=== PATIENT | male | born 1965 | race African-American/Black ===

== ENCOUNTER → 2017-01-11 | Outpatient (CLI) | payer MEDICAID, OTHER ==
[2016-06-22 11:21] VITALS: BP 144/82
[~2017-01-11] MED LIST: ASPI81TA44 PO; ATOR10TA PO; ATOR40TA59 PO; LISI10TA2 PO; MAGN400T3 PO; METO25TA4 PO; Nitroglycerin TD; OXYC-250 PO; SACU1TAB7 PO
--- NOTE | 2017-01-11 12:09 | RAD ---
Complete abdominal ultrasound History: Abnormal liver enzymes, history of colon cancer in 2016. Comparison: CT abdomen pelvis 04/11/2016. Procedure: Transabdominal ultrasound images are obtained. Findings: Visualized pancreas is unremarkable. Liver is diffusely increased in echogenicity. No focal hepatic masses are identified. Right hepatic lobe measures 15.8 cm in length. Gallbladder has an unremarkable appearance. Common bile duct measures normally at 5 mm in diameter. Spleen is unremarkable. Splenic length is 9.9 cm. Right kidney is normal in size and configuration without hydronephrosis. Right kidney demonstrates parapelvic cyst measuring 2.6 cm. Left kidney is normal in size and configuration without hydronephrosis. Visualized portions of the aorta and IVC have normal caliber. Impression: 1. Echogenic liver. Most common etiology is fatty liver disease. 2. No evidence of gallbladder pathology. 3. Right renal cyst.
--- NOTE | 2017-01-11 13:05 | CARD ---
APPROVED REPORT EXAM: Two-dimensional and M-mode echocardiogram with Doppler and color Doppler. Other Information Quality : Good INDICATION Cardiac Disease: CAD Abnormal LFT's 2D DIMENSIONS RVDd2.8 (2.9-3.5cm)Left Atrium(2D)3.3 (1.6-4.0cm) IVSd1.6 (0.7-1.1cm)Aortic Root(2D)3.7 (2.0-3.7cm) LVDd5.5 (3.9-5.9cm)PWd1.5 (0.7-1.1cm) LVDs3.9 (2.5-4.0cm)FS (%) 28.0 % SV77.7 mlLVEF(%)53.7 (>50%) Aortic Valve AoV Peak Ashish.91.5cm/sAoV VTI14.6cm AO Peak GR.3.4mmHgAO Mean GR.2mmHg MARYCHUY (VTI)5.27cm2 Mitral Valve MV E Gdtoopek88.3cm/sMV DECEL [id number] MV A Sajrtrgu20.9cm/sE/A Ratio0.6 Tricuspid Valve TR P. Caapboxo123hx/sRAP [id number] TR Peak Gr.34qoCdDSPF46isQp LEFT VENTRICLE The left ventricle is normal size. There is moderate concentric left ventricular hypertrophy. Left ve ntricle systolic function is moderately decreased. The Ejection Fraction is 35-40% There is hypokines is in the mid to distal anterior wall, apex and septum. Transmitral Doppler flow pattern is Grade I-a bnormal relaxation pattern. RIGHT VENTRICLE The right ventricle is normal size. The right ventricular systolic function is normal. ATRIA The left atrium size is normal. The right atrium size is normal. The interatrial septum is intact wit h no evidence for an atrial septal defect or patent foramen ovale as noted on 2-D or Doppler imaging. AORTIC VALVE The aortic valve is normal in structure and function. Doppler and Color Flow revealed no significant aortic regurgitation. There is no significant aortic valvular stenosis. MITRAL VALVE The mitral valve is normal in structure and function. There is no evidence of mitral valve prolapse. There is no mitral valve stenosis. Doppler and Color-flow revealed trace mitral regurgitation. TRICUSPID VALVE The tricuspid valve is normal in structure and function. Doppler and Color Flow revealed physiologica l tricuspid regurgitation. The PA pressure was estimated at 32 mmHg. There is no tricuspid valve sten osis. PULMONIC VALVE Doppler and Color Flow revealed trace pulmonic valvular regurgitation. There is no pulmonic valvular stenosis. GREAT VESSELS The aortic root is normal in size. The ascending aorta is mildly dilated at 3.7 cm. The IVC is normal in size and collapses >50% with inspiration. PERICARDIAL EFFUSION There is no evidence of significant pericardial effusion. Critical Notification Critical Value: No <Conclusion> There is hypokinesis in the mid to distal anterior wall, apex and septum. The ascending aorta is mildly dilated at 3.7 cm. Left ventricle systolic function is moderately decreased. The Ejection Fraction is 35-40%
== END | disposition home or self-care (01) ==
LOC: ECHO 09:55
PROVIDERS: ATTEND Internal Medicine Cardiovascular Disease
DX: I25.10 Atherosclerotic heart disease of native coronary artery without angina pectoris (principal); R79.89 Other specified abnormal findings of blood chemistry; I31.3 Pericardial effusion (noninflammatory); N28.1 Cyst of kidney, acquired; K76.0 Fatty (change of) liver, not elsewhere classified; Z85.038 Personal history of other malignant neoplasm of large intestine
CPT/HCPCS: 76700; 93306

== ENCOUNTER 2017-02-02 18:28 | Emergency (ER) | payer OTHER ==
[~2017-02-02] VITALS: Ht 180.3 cm; Wt 96.6 kg
[2017-02-02] MEDS ORDERED: 0.9 % SODIUM CHLORIDE 10 ML DISP.SYRIN. IV PRN (19:00)
--- NOTE | 2017-02-02 19:08 | EKG ---
[address] [address] Test Date: 2017-02-02 Test Time: 19:06:47 Pat Name: GODFREY FULLER Department: Room: Gender: M Purchasing Officer: : 1965 Requested By: WESLEY MELENDEZ Order Number: [id number] Reading MD: Nehemiah Purvis Measurements Intervals [place] Rate: 74 P: 28 SD: 212 QRS: -10 QRSD: 96 T: 88 QT: 388 QTc: 436 Interpretive Statements SINUS RHYTHM LEFTWARD AXIS QRS(T) CONTOUR ABNORMALITY CONSISTENT WITH ANTERIOR INFARCT Electronically Signed On 02-07-2017 9:35:51 CDT by Nehemiah Purvis
[2017-02-02 19:10] LABS: BASO # 0.1 x10^3/uL (0.0-0.2); BASO % 1 % (0-3); EOS # 0.3 x10^3/uL (0.0-0.7); EOS % 5 % (0-3); HEMATOCRIT 41.7 % (39.0-53.0); LYMPH # 2.2 x10^3/uL (1.0-4.8); LYMPH % 36 % (24-48); MEAN CORPUSCULAR HEMOGLOBIN 36 pg (25-35); MEAN CORPUSCULAR HGB CONC 34 g/dL (31-37); MEAN CORPUSCULAR VOLUME 107 fL (79-100); MONO # 0.4 x10^3/uL (0.0-1.1); MONO % 7 % (0-9); NEUT # 3.1 x10^3uL (1.8-7.7); NEUT % 51 % (31-73); PLATELET COUNT 154 x10^3/uL (140-400); RED CELL DISTRIBUTION WIDTH 12.5 % (11.5-14.5); WHITE BLOOD COUNT 6.1 x10^3/uL (4.0-11.0)
[2017-02-02] MEDS ORDERED: IV NORMAL SALINE 1,000ML 1,000 ML IV SCH (19:15)
[2017-02-02] MEDS ORDERED: IOHEXOL 300 MG/ML 75 ML VIAL. IV ONE (19:30)
[2017-02-02] MEDS ORDERED: HYDROMORPHONE PF 1 MG/ML DISP.SYRIN. IM ONE ×2 (19:30→20:15)
[2017-02-02] MEDS ORDERED: ONDANSETRON PF 4 MG/2 ML VIAL. IV ONE (19:30)
[2017-02-02 19:32] LABS: ALBUMIN 3.4 g/dL (3.4-5.0); CALCIUM 8.9 mg/dL (8.5-10.1); GFR 95.7; POTASSIUM 4.6 mmol/L (3.5-5.1); TOTAL BILIRUBIN 0.8 mg/dL (0.2-1.0); TOTAL PROTEIN 6.9 g/dL (6.4-8.2)
--- NOTE | 2017-02-02 19:58 | ED.ADGEN ---
Past History Past Medical History: CAD, Cancer, High Cholesterol, Hypertension, [place] Past Surgical History: Cancer Surgery Smoking: Cigarettes, Less than 1pk/day, Quit Less Than 1 Year Alcohol Use: None Drug Use: None General Abdominal Assessment Chief Complaint Abdominal pain with nausea History of Present Illness Patient is a [age] year old [sex] who presents with [] Pt denies trauma,surgery,estrogen use,history of DVT or PE, and immobilization[] Review of Systems Constitutional: Denies fever or chills [] Eyes: Denies change in visual acuity, redness, or eye pain [] HENT: Denies nasal congestion or sore throat [] Respiratory: Denies cough or shortness of breath [] Cardiovascular: No additional information not addressed in HPI [] GI: Denies abdominal pain, nausea, vomiting, bloody stools or diarrhea [] : Denies dysuria or hematuria [] Musculoskeletal: Denies back pain or joint pain [] Integument: Denies rash or skin lesions [] Neurologic: Denies headache, focal weakness or sensory changes [] Endocrine: Denies polyuria or polydipsia [] Current Medication Current Medications Medications (Trade) Dose Ordered Sig/[place] Start Time Stop Time Status Last Admin Dose Admin Hydromorphone HCl (Dilaudid) 1 mg 1X ONCE 02/02/17 20:15 02/02/17 20:16 DC 02/02/17 20:30 1 MG Iohexol (Omnipaque 300 Mg/ml) 75 ml 1X ONCE 02/02/17 19:30 02/02/17 19:31 DC 02/02/17 19:35 75 ML Ondansetron HCl (Zofran) 4 mg 1X ONCE 02/02/17 19:30 02/02/17 19:31 DC 02/02/17 19:22 4 MG Sodium Chloride (Iv Sodium Chloride 0.9% 1,000ml) 1,000 ml @ 1,000 mls/hr Q1H 02/02/17 19:15 02/02/17 20:15 DC 02/02/17 19:15 1,000 MLS/HR Sodium Chloride (Normal Saline Flush) 10 ml QSHIFT PRN 02/02/17 19:00 02/02/17 19:23 10 ML Allergies Allergies Coded Allergies Type Severity Reaction Last Updated Verified No Known Drug Allergies 2/25/16 No Physical Exam Constitutional: Well developed, well nourished, no acute distress, non-toxic appearance. [] HENT: Normocephalic, atraumatic, bilateral external ears normal, oropharynx moist, no oral exudates, nose normal. [] Eyes: PERRLA, EOMI, conjunctiva normal, no discharge. [] Neck: Normal range of motion, no tenderness, supple, no stridor. [] Cardiovascular:Heart rate regular rhythm, no murmur [] Lungs & Thorax: Bilateral breath sounds clear to auscultation [] Abdomen: Bowel sounds normal, soft, no tenderness, no masses, no pulsatile masses. [] Skin: Warm, dry, no erythema, no rash. [] Back: No tenderness, no CVA tenderness. [] Extremities: No tenderness, no cyanosis, no clubbing, ROM intact, no edema. [] Neurologic: Alert and oriented X 3, normal motor function, normal sensory function, no focal deficits noted. [] Psychologic: Affect normal, judgement normal, mood normal. [] Negative Abdominal Assessment The patient denies abdominal or flank pain, anorexia, nausea or vomiting, dysphagia, change in bowel habits or black or bloody stools or weight loss. EKG Results EKG timed at approximately 1900 hrs. demonstrates a heart rate of 74 normal sinus rhythm left axis deviation history of prior [place] with Q waves noted in V1 and V2 V3 which is consistent with old injury pattern. There is no new ST segment elevation or changes. 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 [] PULSE OXIMETRY The patient maintained their pulse oximetry readings above 90 percent during their evaluation per my interpretation.[] Radiology/Procedures Laboratory Tests Test 02/02/17 18:50 White Blood Count 6.1x10^3/uL Red Blood Count 3.90x10^6/uL Hemoglobin 14.0g/dL Hematocrit 41.7% Mean Corpuscular Volume 107fL Mean Corpuscular Hemoglobin 36pg Mean Corpuscular Hemoglobin Concent 34g/dL Red Cell Distribution Width 12.5% Platelet Count 154x10^3/uL Neutrophils (%) (Auto) 51% Lymphocytes (%) (Auto) 36% Monocytes (%) (Auto) 7% Eosinophils (%) (Auto) 5% Basophils (%) (Auto) 1% Neutrophils # (Auto) 3.1x10^3uL Lymphocytes # (Auto) 2.2x10^3/uL Monocytes # (Auto) 0.4x10^3/uL Eosinophils # (Auto) 0.3x10^3/uL Basophils # (Auto) 0.1x10^3/uL Sodium Level 140mmol/L Potassium Level 4.6mmol/L Chloride Level 104mmol/L Carbon Dioxide Level 28mmol/L Anion Gap 8 Blood Urea Nitrogen 14mg/dL Creatinine 1.0mg/dL Estimated GFR (Cockcroft-Gault) 95.7 BUN/Creatinine Ratio 14 Glucose Level 94mg/dL Calcium Level 8.9mg/dL Total Bilirubin 0.8mg/dL Aspartate Amino Transf (AST/SGOT) 32U/L Alanine Aminotransferase (ALT/SGPT) 45U/L Alkaline Phosphatase 59U/L Creatine Kinase 80U/L Creatine Kinase MB (Mass) 0.7ng/mL Creatine Kinase MB Relative Index 0.9% Troponin I Quantitative < 0.017ng/mL Total Protein 6.9g/dL Albumin 3.4g/dL Albumin/Globulin Ratio 1.0 Lipase 118U/L Current Medications Medications (Trade) Dose Ordered Sig/[place] Route PRN Reason Start Time Stop Time Status Last Admin Dose Admin Sodium Chloride (Iv Sodium Chloride 0.9% 1,000ml) 1,000 ml @ 1,000 mls/hr Q1H IV 02/02/17 19:15 02/02/17 20:15 DC 02/02/17 19:15 1,000 MLS/HR Sodium Chloride (Normal Saline Flush) 10 ml QSHIFT PRN IV AFTER MEDS AND BLOOD DRAWS 02/02/17 19:00 02/02/17 19:23 10 ML Hydromorphone HCl (Dilaudid) 1 mg 1X ONCE IM 02/02/17 19:30 02/02/17 19:31 DC 02/02/17 19:22 1 MG Ondansetron HCl (Zofran) 4 mg 1X ONCE IV 02/02/17 19:30 02/02/17 19:31 DC 02/02/17 19:22 4 MG Iohexol (Omnipaque 300 Mg/ml) 75 ml 1X ONCE IV 02/02/17 19:30 02/02/17 19:31 DC 02/02/17 19:35 75 ML Hydromorphone HCl (Dilaudid) 1 mg 1X ONCE IM 02/02/17 20:15 02/02/17 20:16 DC [] PATIENT: GODFREY FULLER ACCOUNT: [id number] : 1965 LOCATION: ER AGE: 51 SEX: M EXAM STATUS: PRE ER ORD. PHYSICIAN: WESLEY MELENDEZ MD REASON: ab pain with prior surgery PROCEDURE: CT ABD PELV W/ IV CONTRST ONLY Examination: CT of the abdomen pelvis with IV contrast HISTORY History of abdominal pain, right colectomy, hernia repair. COMPARISON 04/11/2016. TECHNIQUE Axial CT images of the abdomen is a performed with IV contrast. Coronal sagittal reformats were performed. Exposure: One or more of the following dose reduction technique were utilized for this examination: 1. Automated exposure control. 2.Adjustment of MA and /or KV according to patient size. 3. Use of iterative reconstruction technique. Findings : Minimal bibasilar lung atelectasis. No evidence of free air identified in the abdomen. The visualized liver, spleen, adrenal grossly appears unremarkable. The gallbladder is mildly distended. The stomach is mildly distended. Visualized pancreas grossly appears unremarkable. The bilateral kidneys enhance symmetrically. Cystic structure identified in the right kidney likely a cyst similar to prior exam. Surgical changes identified in the right colon. Urinary bladder is mildly distended. The caliber of the aorta grossly appears unremarkable. Mild aortic atherosclerosis. No evidence of lytic bony destructive lesion. Moderate degenerative changes lumbar spine. IMPRESSION 1. No acute intra-abdominal findings. 2. Prior surgical changes identified in the right colon region. Electronically signed by: Mason Avery (Feb 02, 2017 19:57:08) DICTATED AND SIGNED BY: MASON AVERY MD DATE: 02/02/171956 CC: WESLEY MELENDEZ MD; ANN WAKEFIELD MD ~ Current Data Laboratory Tests Test 02/02/17 18:50 White Blood Count 6.1x10^3/uL (4.0-11.0) Red Blood Count 3.90x10^6/uL (4.30-5.70) L Hemoglobin 14.0g/dL (13.0-17.5) Hematocrit 41.7% (39.0-53.0) Mean Corpuscular Volume 107fL (79-100) H Mean Corpuscular Hemoglobin 36pg (25-35) H Mean Corpuscular Hemoglobin Concent 34g/dL (31-37) Red Cell Distribution Width 12.5% (11.5-14.5) Platelet Count 154x10^3/uL (140-400) Neutrophils (%) (Auto) 51% (31-73) Lymphocytes (%) (Auto) 36% (24-48) Monocytes (%) (Auto) 7% (0-9) Eosinophils (%) (Auto) 5% (0-3) H Basophils (%) (Auto) 1% (0-3) Neutrophils # (Auto) 3.1x10^3uL (1.8-7.7) Lymphocytes # (Auto) 2.2x10^3/uL (1.0-4.8) Monocytes # (Auto) 0.4x10^3/uL (0.0-1.1) Eosinophils # (Auto) 0.3x10^3/uL (0.0-0.7) Basophils # (Auto) 0.1x10^3/uL (0.0-0.2) Sodium Level 140mmol/L (136-145) Potassium Level 4.6mmol/L (3.5-5.1) Chloride Level 104mmol/L (98-107) Carbon Dioxide Level 28mmol/L (21-32) Anion Gap 8 (6-14) Blood Urea Nitrogen 14mg/dL (8-26) Creatinine 1.0mg/dL (0.7-1.3) Estimated GFR (Cockcroft-Gault) 95.7 BUN/Creatinine Ratio 14 (6-20) Glucose Level 94mg/dL (70-99) Calcium Level 8.9mg/dL (8.5-10.1) Total Bilirubin 0.8mg/dL (0.2-1.0) Aspartate Amino Transf (AST/SGOT) 32U/L (15-37) Alanine Aminotransferase (ALT/SGPT) 45U/L (16-63) Alkaline Phosphatase 59U/L (46-116) Creatine Kinase 80U/L (39-308) Creatine Kinase MB (Mass) 0.7ng/mL (0.0-3.6) Creatine Kinase MB Relative Index 0.9% (0-4) Troponin I Quantitative < 0.017ng/mL (0-0.055) Total Protein 6.9g/dL (6.4-8.2) Albumin 3.4g/dL (3.4-5.0) Albumin/Globulin Ratio 1.0 (1.0-1.7) Lipase 118U/L (73-393) Active Scripts Medications Dose Route/Sig Days Date Category Dose Instructions Magnesium Oxide 400 Mg Tablet 1 Tab PO DAILY 06/22/16 Rx Metoprolol Tartrate 25 Mg Tablet 1 Tab PO BID 06/22/16 Rx LAST DOSE GIVEN: DATE: TIME: NEXT DOSE DUE: DATE: RESTART TODAY TIME: EVENING Percocet 10-325 Mg Tablet (Oxycodone Hcl/Acetaminophen) 1 Each Tablet 1 Each PO PRN BID PRN 06/21/16 Reported [Nitroglycerin] 1 PATCH Patch 1 Patch TD DAILY 05/24/16 Rx Children's Aspirin (Aspirin) 81 Mg Tab.chew 81 Mg PO DAILYWBKFT 05/24/16 Rx Lisinopril 10 Mg Tablet 1 Tab PO DAILY16 05/23/16 Reported Entresto 49 mg-51 mg Tablet (Sacubitril/Valsartan) 1 Each Tablet 1 Each PO DAILY 05/23/16 Reported Atorvastatin Calcium 40 Mg Tablet 1 Tab PO QHS 04/09/16 Reported Vital Signs Date Time Temp Pulse Resp B/P Pulse Ox O2 Delivery O2 Flow Rate FiO2 02/02/17 18:28 98.6 77 20 96 Room Air Vital Signs Date Time Temp Pulse Resp B/P Pulse Ox O2 Delivery O2 Flow Rate FiO2 02/02/17 20:30 20 98 Room Air 02/02/17 19:22 20 96 Room Air 02/02/17 18:28 98.6 77 20 96 Room Air Vital Signs Date Time Temp Pulse Resp B/P Pulse Ox O2 Delivery O2 Flow Rate FiO2 02/02/17 20:30 20 98 Room Air 02/02/17 18:28 98.6 77 Assessment approximately 7:[address] of abdominal pain although he is hungry wanting something to drink at this point waiting for CT scan to be complete to rule out small bowel obstruction. In my differential diagnosis of concern ischemic bowel, small bowel obstruction, diverticulitis, appendicitis, bowel adhesions causing ileus bowel perforation or other intra-abdominal catastrophe. Patient was ordered a second dose of pain medications and some more fluids. Course & Med Decision Making Pertinent Labs and Imaging studies reviewed. (See chart for details) [Patient at 750 was still complaining of abdominal pain and nausea that was hungry and wanted somebody. At this point time his abdomen still soft but he does still have elevated bowel sounds without distention. Patient was offered another dose of Dilaudid to treat his pain. Reassessment at 8:[address] scan is completed results demonstrated no acute abdomen no small bowel obstruction no evidence of pneumocystis intestinalis patient also has improved nausea and is able to tolerate by mouth medications as well as fluids.. This point I have offered admission for pain control. Patient would prefer to go home as long as his pain is under better control.] Patient at 913 was reevaluated pain is now almost resolved patient feels greatly prefer to go home as opposed to be admitted to the hospital. Again abdomen soft no evidence of surgical abdomen on CT scan patient given precautions given pain control and nausea medications follow-up with his primary care doctor Dr. Wakefield tomorrow morning. Patient's understands precautions and return for any worsening symptoms or questions or concerns. Critical Care Time Critical care time was [] minutes exclusive of procedures. Final Impression Undifferentiated abdominal pain nausea and vomiting [] Problems: WESLEY MELENDEZ MD Feb 02, 2017 19:58
--- NOTE | 2017-02-02 20:39 | ACF ---
Admission Criteria Forms ABDOMINAL PAIN Clinical Indications for Admission to Inpatient Care (Place 'X' for any and all applicable criteria): Admission is indicated for ANY ONE of the following(1)(2)(3)(4)(5): [ ]I. Inpatient admission required rather than observation care (Also use Abdominal Pain: Observation Care, as appropriate) because of ANY ONE of the following: [ ]a) Severe pain requiring acute inpatient management [ ]b) Identification of etiology/finding that requires inpatient care (eg, aortic dissection, free air) [ ]c) Absent bowel sounds with complete ileus(6) [ ]d) Suspected toxic megacolon [ ]e) Severe electrolyte abnormalities requiring inpatient care [ ]f) High fever or infection requiring inpatient admission as indicated by ANY ONE of following(7)(8): [ ] i) Appropriate outpatient or observational care antimicrobial treatment unavailable, not effective, or not feasible [ ] ii) Documented bacteremia [ ] iii) Temperature > 104.9 degrees F (oral) [ ] iv) T >103.1 F (oral) or < 96.8 F(rectal) that does not respond to all emergency treatment measures [ ]g) Signs of intestinal obstruction [B] [ ]h) Hemodynamic instability [ ]i) IV fluid to replace significant ongoing losses (greater than 3 L/m2 per day) (12)(13) [ ]j) Percutaneous or open drainage (eg, abscess, biliary tract ) procedures [ ]k) Parenteral nutrition regimen that must be implemented on inpatient basis [ ]l) Other condition,treatment or monitoring requiring inpatient admission. [ ]II. Peritoneal signs present [ ]III. Surgery needed that cannot be performed on an ambulatory basis. [ ]IV. Evaluation requires patient to not eat or drink for extended period ( eg, more than 24 hours). [ ]V. Contraindications and/or Inappropriate clinical situations for Observational Care in patients with abdominal pain, when ANY ONE of the following is required: [ ]a) Thorough evaluation is required to prevent catastrophic events due to delays in diagnosing (e.g.Mesenteric ischemia) 1,3 [ ]b) Patient with severe pathology or with chronic symptoms unlikely to improve in the ED stay (3) [ ]. General contraindications and/or Inappropriate clinical situations for Observational Care in patients with abdominal pain, when ANY ONE of the following is required: [ ]a) Prediction of prolongation of LOS based on ANY ONE of the following may be considered as a contraindication for observational care 2, 3, 4, 5, 6, 7, 8, 9, 10, 11 [ ]i) Age > 65 yrs. [ ]ii) Patient arriving by ambulance [ ]iii) Patient with high acuity [ ]iv) Patient requiring vital sign monitoring [ ]v) Patient on IV medication [ ]b) Systolic blood pressures 180mmHg 3,12 [ ]c) Patient with altered mental status including delirium and other alteration of consciousness, (3) [ ]d) Patient whose discharge disposition will be to a custodial home or rehabilitation home should not be managed in Emergency Department Observation Unit. CMS rule requires 3 days hospital stay before such placement.3,13 [ ]e) Patient with failure to thrive due to broad array of etiologies 3,16,17 [ ]f) Inability to ambulate 3,14 Extended stay beyond goal length of stay may be needed for(2)(3): [ ]a) Persistent abdominal pain with suspected intra-abdominal process [ ]b) Diagnosed condition requiring continued stay (e.g., pancreatitis, complicated diverticulitis) [ ]c) Surgery (e.g., colectomy) The original [facility] content created by [employer] has been revised. The portions of the content which have been revised are identified through the use of italic text or in bold, and [facility] has neither reviewed nor approved the modified material.All other unmodified content is copyright [employer]. Please see references footnoted in the original [facility] edition 2016 DANIELLE BENTLEY Feb 02, 2017 20:39
[2017-02-02 21:20] VITALS: BP 162/93
== END 2017-02-02 21:40 | disposition home or self-care (01) ==
LOC: ER 18:28
DX: R10.9 Unspecified abdominal pain (principal); R11.2 Nausea with vomiting, unspecified; E78.00 Pure hypercholesterolemia, unspecified; I10 Essential (primary) hypertension; I25.2 Old myocardial infarction; I25.10 Atherosclerotic heart disease of native coronary artery without angina pectoris; F17.210 Nicotine dependence, cigarettes, uncomplicated
CPT/HCPCS: 36415; 74177; 80053; 82553; 83690; 84484; 85027; 93005; 96361; 96372; 96374; 99285; J1170; J2405; Q9967; J7030

== ENCOUNTER 2017-06-26 17:40 | Observation (INO) | payer OTHER ==
[~2017-06-26] VITALS: Ht 177.8 cm; Wt 96.7 kg
[~2017-06-26 17:40] MED LIST changes: -OXYC-250 PO; +OXYC-328 PO
[2017-06-26 18:15] LABS: BASO # 0.1 x10^3/uL (0.0-0.2); BASO % 1 % (0-3); EOS # 0.1 x10^3/uL (0.0-0.7); EOS % 2 % (0-3); HEMATOCRIT 40.8 % (39.0-53.0); HEMOGLOBIN 14.3 g/dL (13.0-17.5); LYMPH # 1.5 x10^3/uL (1.0-4.8); LYMPH % 24 % (24-48); MEAN CORPUSCULAR HEMOGLOBIN 37 pg (25-35); MEAN CORPUSCULAR HGB CONC 35 g/dL (31-37); MEAN CORPUSCULAR VOLUME 106 fL (79-100); MONO # 0.4 x10^3/uL (0.0-1.1); MONO % 7 % (0-9); NEUT % 66 % (31-73); PLATELET COUNT 179 x10^3/uL (140-400); RED BLOOD COUNT 3.86 x10^6/uL (4.30-5.70); RED CELL DISTRIBUTION WIDTH 12.8 % (11.5-14.5)
[2017-06-26] MEDS ORDERED: IV NORMAL SALINE 1,000ML 1,000 ML IV SCH (18:16)
--- NOTE | 2017-06-26 18:21 | PHYS DOC ---
Past History Past Medical History: CAD, Cancer, High Cholesterol, Hypertension, MD Past Surgical History: Cancer Surgery Smoking: Cigarettes, Less than 1pk/day, Quit Less Than 1 Year Alcohol Use: None Drug Use: None Adult General Chief Complaint Chief Complaint: CHEST PAIN [facility] HPI Patient is a pleasant 52-year-old male with a known history of coronary artery disease was a prior smoker, has a history of hypertension and hyperlipidemia who presents with chest pain that began about an hour and half prior to arrival. Patient was at rest when he noted left-sided chest pain with radiation to the left arm and hand grading a tingling feeling in his hand. Patient says the pain is been continuous last hour and a half with no radiation to the back neck or jaw. It has made him lightheaded and dizzy with some nausea but no vomiting, diarrhea or diaphoresis. Patient denies any abdominal pain, denies any URI symptoms, trauma or other recent travel outside the country. Pain is presently an 8 of 10 not worse with exertion or position. He says this is very reminiscent of his prior heart issues. He's had catheterizations 3 with multiple stents. His doctor is Dr. Mckinnon. Differential diagnosis for chest pain: Pericarditis, myocarditis, endocarditis, pneumothorax, pneumonia, aortic dissection, esophageal spasm, esophagitis, peptic ulcer disease, acute coronary syndrome, mediastinitis, Boerhaave syndrome , musculoskeletal chest wall pain, costochondritis, intercostal strain, rib fracture, pulmonary contusion, pneumonitis, pleural effusion, pericardial effusion, pericardial tamponode, and pleurisy. Considered upon arrival Review of Systems Review of Systems Constitutional: Denies fever or chills [] Eyes: Denies change in visual acuity, redness, or eye pain [] HENT: Denies nasal congestion or sore throat [] Respiratory: Denies cough or shortness of breath [] Cardiovascular: No additional information not addressed in HPI [] GI: Denies abdominal pain, denies any vomiting diarrhea or constipation but has been fairly nauseous : Denies dysuria or hematuria [] Musculoskeletal: Denies back pain or joint pain [] Integument: Denies rash or skin lesions [] Neurologic: He did get lightheaded and dizzy Endocrine: Denies polyuria or polydipsia [] Allergies Allergies Allergies Coded Allergies Type Severity Reaction Last Updated Verified No Known Drug Allergies 12/04/15 No Physical Exam Physical Exam Constitutional: Well developed, well nourished, no acute distress, non-toxic appearance. he is nondiaphoretic HENT: Normocephalic, atraumatic, bilateral external ears normal, oropharynx moist, no oral exudates, nose normal. [] Eyes: PERRLA, EOMI, conjunctiva normal, no discharge. [] Neck: Normal range of motion, no tenderness, supple, no stridor. [] Cardiovascular:Heart rate regular rhythm, no murmur [] Lungs & Thorax: Bilateral breath sounds clear to auscultation [] Abdomen: Bowel sounds normal, soft, no tenderness, no masses, no pulsatile masses. [] Skin: Warm, dry, no erythema, no rash. [] Back: No tenderness, no CVA tenderness. [] Extremities: No tenderness, no cyanosis, no clubbing, ROM intact, no edema. [] Neurologic: Alert and oriented X 3, normal motor function, normal sensory function, no focal deficits noted. [] Psychologic: Affect normal, judgement normal, mood normal. [] Current Patient Data Lab Results Laboratory Tests Test 06/26/17 17:50 White Blood Count 6.0 x10^3/uL (4.0-11.0) Red Blood Count 3.86 x10^6/uL (4.30-5.70) L Hemoglobin 14.3 g/dL (13.0-17.5) Hematocrit 40.8 % (39.0-53.0) Mean Corpuscular Volume 106 fL (79-100) H Mean Corpuscular Hemoglobin 37 pg (25-35) H Mean Corpuscular Hemoglobin Concent 35 g/dL (31-37) Red Cell Distribution Width 12.8 % (11.5-14.5) Platelet Count 179 x10^3/uL (140-400) Neutrophils (%) (Auto) 66 % (31-73) Lymphocytes (%) (Auto) 24 % (24-48) Monocytes (%) (Auto) 7 % (0-9) Eosinophils (%) (Auto) 2 % (0-3) Basophils (%) (Auto) 1 % (0-3) Neutrophils # (Auto) 4.0 x10^3uL (1.8-7.7) Lymphocytes # (Auto) 1.5 x10^3/uL (1.0-4.8) Monocytes # (Auto) 0.4 x10^3/uL (0.0-1.1) Eosinophils # (Auto) 0.1 x10^3/uL (0.0-0.7) Basophils # (Auto) 0.1 x10^3/uL (0.0-0.2) Prothrombin Time 10.3 SEC (9.4-11.4) Prothrombin Time INR 1.0 (0.9-1.1) PTT 27 SEC (23-33) Sodium Level 139 mmol/L (136-145) Potassium Level 4.2 mmol/L (3.5-5.1) Chloride Level 103 mmol/L (98-107) Carbon Dioxide Level 30 mmol/L (21-32) Anion Gap 6 (6-14) Blood Urea Nitrogen 12 mg/dL (8-26) Creatinine 1.2 mg/dL (0.7-1.3) Estimated GFR (Cockcroft-Gault) 77.2 BUN/Creatinine Ratio 10 (6-20) Glucose Level 95 mg/dL (70-99) Calcium Level 9.0 mg/dL (8.5-10.1) Magnesium Level 1.5 mg/dL (1.8-2.4) L Total Bilirubin 0.8 mg/dL (0.2-1.0) Aspartate Amino Transferase (AST) 36 U/L (15-37) Alanine Aminotransferase (ALT) 56 U/L (16-63) Alkaline Phosphatase 77 U/L (46-116) Creatine Kinase 142 U/L (39-308) Creatine Kinase MB (Mass) 0.6 ng/mL (0.0-3.6) Creatine Kinase MB Relative Index 0.4 % (0-4) Troponin I Quantitative 0.028 ng/mL (0-0.055) AU-Eep-H-Type Natriuretic Peptide 417 pg/mL (0-124) H Total Protein 7.2 g/dL (6.4-8.2) Albumin 3.8 g/dL (3.4-5.0) Albumin/Globulin Ratio 1.1 (1.0-1.7) Lipase 109 U/L (73-393) EKG EKG []EKG timed 5:47 PM 06/26/2017 read by me demonstrates sinus rhythm with a heart rate of 96 left atrial enlargement noted in V2 with a large P wave. Patient has a Q-wave noted in V1 and V2 V3 likely secondary to an old anterior septal infarct. There is some nonspecific T-wave ST segment depression in the lateral leads. We'll compare to old EKG. When compared with EKG from 02/02/2017 there is no changes noted. Radiology/Procedures Radiology/Procedures []B chest x-ray read by me time on the x-ray was 6:07 PM 06/26/2017 demonstrates mild cardiomegaly no calcific tortuous aorta, no pneumothorax, no pneumonia, no pleural effusion. No subdiaphragmatic air Course & Med Decision Making Course & Med Decision Making Pertinent Labs and Imaging studies reviewed. (See chart for details) patient presented with chest pain by chest pain differential was considered upon arrival complete and EKG, troponin, chest x-ray and appropriate lab work. Time is now 7 PM patient feels markedly better Patient tells me that their symptoms given during CC are improved. We reviewed labs and radiology reports with patient and any family at bedside. I have looked at the AP chest x-ray which demonstrates mild cardiomegaly without pulmonary infiltrate, no soda Medicare no pleural effusion, no evidence of tortuous aorta or calcific or aorta. No long bone fractures. At this time patient is still waiting for the rest of his laboratory returned. Is now 7:30 patient noted to be coming seeming and a dose of 2 g of IV mag as been ordered. This patient presents with chest pain with a history of hypertension, hyperlipidemia and a prior heart disease. His heart score was measured on arrival History: This time his history and risk factors he is a moderate risk which requires hospitalization. I have spoken with this patient extensively about the plan. He is pain-free at this time resting quietly. It is also noted Highly suspicious 2 points moderately suspicious 1. slightly suspicious 0 point EKG: ST segment depression 2. nonspecific repolarization disturbance 1. normal 0 point Age: Greater than 65 2 points, 65-45 1., less than 45 years old 0 points Risk factors:> 3 risk factors 2 points, 1-2 risk factors one point, no risk factors 0 point Troponin: > 2 times normal 2 points, 1-2 times normal 1., normal limits 0 point Total score: Score % pts MACE/n MACE Policy 0-3 32% 1.9% 0.05% Discharge 4-6 51% 413/3136 13% 1.3% Observation Risk management 7-10 17% 518/1045 50% 2.8% Observation Treatment, CAG [] Powerhouse Attendant note: Dr. Henderson Powerhouse Attendant called at of the service 7:30 Consult called back at 7:30 Discussed the case I presented and they agreed with admission. Time of acceptance 7:30 Impression it is scary locally in [place] and [facility] and is agreeable to admission to the hospital. He will have repeat serial enzymes drawn and transfer to a nearby [facility] facility if necessary. Patient be given more pain medications as he also receives the magnesium. Dragon Disclaimer Dragon Disclaimer This chart was dictated in whole or in part using Voice Recognition software in a busy, high-work load, and often noisy Emergency Department environment. It may contain unintended and wholly unrecognized errors or omissions. Departure Departure: Impression: Primary Impression: Chest pain Disposition: ADMITTED INPATIENT Condition: GUARDED Referrals: ANN PÉREZ MD (PCP) WESLEY MELENDEZ MD Jun 26, 2017 18:21
[2017-06-26] MEDS: HYDROmorphone PF 1 MG/ML DISP.SYRIN IV/SQ PRN ×3 (18:28→19:56)
[2017-06-26] MEDS ORDERED: ASPIRIN 81 MG TAB.CHEW PO ONE (18:30)
[2017-06-26] MEDS ORDERED: 0.9 % SODIUM CHLORIDE 10 ML DISP.SYRIN. IV PRN (18:30)
[2017-06-26] MEDS ORDERED: LORazepam 2 MG/ML VIAL IV ONE (18:30)
[2017-06-26 18:35] LABS: ALBUMIN 3.8 g/dL (3.4-5.0); ALBUMIN/GLOBULIN RATIO 1.1 (1.0-1.7); CREATININE 1.2 mg/dL (0.7-1.3); GFR 77.2; POTASSIUM 4.2 mmol/L (3.5-5.1); TOTAL BILIRUBIN 0.8 mg/dL (0.2-1.0); TOTAL PROTEIN 7.2 g/dL (6.4-8.2)
[2017-06-26 19:00] LABS: MAGNESIUM 1.5 mg/dL (1.8-2.4)
[2017-06-26] MEDS ORDERED: MAGNESIUM SULFATE 2GM 50 ML IV ONE (19:15)
[2017-06-26] MEDS: IV NORMAL SALINE 1,000ML 1,000 ML IV SCH ×2 (19:35→21:39)
--- NOTE | 2017-06-26 19:40 | EKG ---
[address] [address] Test Date: 2017-06-26 Test Time: 17:47:56 Pat Name: GODFREY FULLER Department: Room: Gender: M Internist: JASSI : 1965 Requested By: JANEY GANDHI Order Number: [id number] Reading MD: Nehemiah Purvis Measurements Intervals [place] Rate: 96 P: 52 TX: 188 QRS: -9 QRSD: 92 T: 85 QT: 336 QTc: 431 Interpretive Statements SINUS RHYTHM GIANFRANCO-SEPTAL INFARCT Electronically Signed On 06-27-2017 13:21:44 CDT by Nehemiah Purvis
[2017-06-26] MEDS ORDERED: ACETAMINOPHEN 325 MG TABLET PO PRN (19:45)
[2017-06-26] MEDS ORDERED: ONDANSETRON PF 4 MG/2 ML VIAL. IV PRN (19:45)
[2017-06-26] MEDS: NITROGLYCERIN SUBLINGUAL 0.4 MG BOTTLE OF 25. SL PRN ×6 (19:57→23:21)
[2017-06-26] MEDS ORDERED: HYDROmorphone PF 2 MG/ML VIAL IV ONE (20:00)
[2017-06-26 21:17] VITALS: BP_SYST 123; BP_SYST 154; BP_DIAS 80; BP_DIAS 96
[2017-06-26] MEDS: METOPROLOL TART IMMED RELEASE 25 MG TABLET PO SCH (21:38)
[2017-06-26] MEDS: MORPHINE SULFATE 4 MG/ML DISP.SYRIN. IV PRN ×2 (21:38→23:45)
[2017-06-26] MEDS ORDERED: ATORVASTATIN CALCIUM 20 MG TABLET PO SCH (22:00)
[2017-06-26 23:03] VITALS: BP 163/97
[2017-06-27] MEDS: NITROGLYCERIN OINT 1 GM PACKET. TP SCH ×3 (01:36→12:16)
[2017-06-27] MEDS: MORPHINE SULFATE 4 MG/ML DISP.SYRIN. IV PRN ×4 (01:38→08:39)
[2017-06-27 02:52] VITALS: BP 165/99
[2017-06-27] MEDS: IV NORMAL SALINE 1,000ML 1,000 ML IV SCH (04:34)
[2017-06-27 06:11] VITALS: BP 160/91
[2017-06-27] MEDS ORDERED: ASPIRIN 81 MG TAB.CHEW PO SCH (08:00)
[2017-06-27] MEDS: METOPROLOL TART IMMED RELEASE 25 MG TABLET PO SCH (08:39)
[2017-06-27] MEDS ORDERED: ENOXAPARIN 40 MG/0.4 ML DISP.SYRIN. SQ SCH (08:45)
--- NOTE | 2017-06-27 08:47 | RAD ---
Portable chest, 06/26/2017: History: Chest pain Comparison is made to a study from 06/21/2016. The heart size and pulmonary vascularity are normal. There is mild tortuosity of the thoracic aorta. No pulmonary infiltrates are seen. There is no evidence of pleural fluid. IMPRESSION: No acute cardiopulmonary abnormality is detected.
[2017-06-27] MEDS ORDERED: SACUBITRIL/VALSARTAN 49/51MG TABLET. PO SCH (09:00)
[2017-06-27] MEDS ORDERED: METOPROLOL TART IMMED RELEASE 25 MG TABLET PO SCH (09:00)
[2017-06-27] MEDS ORDERED: MAGNESIUM OXIDE 400 MG TABLET PO SCH (09:00)
--- NOTE | 2017-06-27 09:00 | PDOC2 ---
DAFNE HARRIS Scott CHILDRESS 06/27/17 0900: CONSULT Date of Admission DATE: 06/27/17 TIME: 08:54 Reason for Consult: chest pain Problem List Problems Medical Problems: (1) Chest pain Status: Acute History of Present Illness Mr Marin is a 52year old male with history of coronary artery disease, hypertension, ICM, chf and hyperlipidemia. He presents with complaints of sharp , stabbing chest pain in his left chest. Onset was while at rest and pain lasted for about an hour off and on. Each episode lasting a few minutes. He reports some minimal improvement with putting pressure on his chest and relief with pain medication in the ED. He denies any associated symptoms or radiation. He denies any other episodes of chest pain. He denies congestive symptoms, palpitations or syncope. He does report some mild lightheadedness during the episode of chest discomfort and blood pressure elevation with systolic in the 170s. He reports his functional capacity at 6-8 blocks without problems, and walks at least 3 x per week. He does report a cough for several days with clear sputum production but no fever or chills. Past Medical History echo 01/21/17 <Conclusion> There is hypokinesis in the mid to distal anterior wall, apex and septum. The ascending aorta is mildly dilated at 3.7 cm. Left ventricle systolic function is moderately decreased. The Ejection Fraction is 35-40% Cardiac cath 11/2015 Conclusion 1. Successful PCI/BMS to the right coronary artery 2. Fractional flow reserve measurement of the left circumflex artery stenosis showed that this is physiologically not significant. Cardiac cath 03/2016 FINDINGS 1. Hemodynamics: Left ventricular end-diastolic pressure 20 mmHg. No pullback gradient across the aortic valve. 2. Coronary angiography: a. The left main coronary artery arose from the left sinus of Valsalva, gave rise to the left anterior descending and left circumflex arteries and did not show any significant stenosis. b. The left anterior descending artery showed a widely patent stent in the proximal segment. There is a 50% stenosis noted in the midsegment. c. The left circumflex artery showed 30% stenosis in the proximal segment and 60% stenosis involving the proximal segment of the large obtuse marginal branch which was found to be physiologically not significant based on FFR measurement of 0.88. d. The right coronary artery was a large and dominant vessel arising from the right sinus of Valsalva that showed a widely patent stent in the midsegment. The posterior descending branch showed 50% stenosis in the proximal segment. Cardiovascular: CAD (STEMI 12/04/2015 with CURT to LAD; BMS to RCA on 12/05/2015; FFR to circ - not significant stenosis), HTN, [place] (STEMI 12/04/2015), Hyperlipidemia Pulmonary: No pertinent hx CENTRAL NERVOUS SYSTEM: CVA (hypertensive; 2011) GI: No pertinent hx Heme/Onc: cecal cancer Hepatobiliary: No pertinent hx Psych: No pertinent hx Musculoskeletal: low back pain Rheumatologic: No pertinent hx Infectious disease: No pertinent hx ENT: No pertinent hx Renal/: No pertinent hx Endocrine: No pertinent hx Dermatology: No pertinent hx Past Surgical History laparoscopic right hemicolectomy and umbilical hernia repair, thumb surgery Family History Heart Disease (brother and sister) Social History Smoke: Quit (quit 11/2015; 13 pack year history) ALCOHOL: none Drugs: None Current Medications Current Medications Current Medications Aspirin (Children'S Aspirin) 324 mg 1X ONCE PO Last administered on 06/26/17 18:29; Start 06/26/17 at 18:30; Stop 06/26/17 at 18:31; Status DC Lorazepam (Ativan) 1 mg 1X ONCE IV Last administered on 06/26/17 18:29; Start 06/26/17 at 18:30; Stop 06/26/17 at 18:31; Status DC Hydromorphone HCl (Dilaudid) 1 mg PRN Q15MIN PRN IV/SQ PAIN GREATER THAN 3/10 Last administered on 06/26/17 19:56; Start 06/26/17 at 18:30; Stop 06/27/17 at 18:29 Sodium Chloride 1,000 ml @ 1,000 mls/hr Q1H IV Last administered on 06/26/17 18:28; Start 06/26/17 at 18:16; Stop 06/26/17 at 19:15; Status DC Sodium Chloride (Normal Saline Flush) 10 ml QSHIFT PRN IV AFTER MEDS AND BLOOD DRAWS; Start 06/26/17 at 18:30 Magnesium Sulfate 50 ml @ 25 mls/hr 1X ONCE IV Last administered on 06/26/17 20:03; Start 06/26/17 at 19:15; Stop 06/26/17 at 21:14; Status DC Ondansetron HCl (Zofran) 4 mg PRN Q4HRS PRN IV NAUSEA/VOMITING; Start 06/26/17 at 19:45; Stop 06/27/17 at 19:44 Morphine Sulfate (Morphine 4mg Syringe) 4 mg PRN Q2HR PRN IV PAIN Last administered on 06/27/17 08:39; Start 06/26/17 at 19:45; Stop 06/27/17 at 19:44 Sodium Chloride 1,000 ml @ 125 mls/hr Q8H IV Last administered on 06/27/17 04 :34; Start 06/26/17 at 19:35; Stop 06/27/17 at 19:34 Acetaminophen (Tylenol) 650 mg PRN Q4HRS PRN PO FEVER; Start 06/26/17 at 19:45 ; Stop 06/27/17 at 19:44 Nitroglycerin (Nitrostat) 0.4 mg PRN Q5MIN PRN SL CHEST PAIN Last administered on 06/26/17 23:21; Start 06/26/17 at 19:45; Stop 06/27/17 at 19:44 Hydromorphone HCl (Dilaudid) 2 mg 1X ONCE IV Last administered on 06/26/17 20 :30; Start 06/26/17 at 20:00; Stop 06/26/17 at 20:02; Status DC Aspirin (Children'S Aspirin) 81 mg DAILYWBKFT PO Last administered on 08:39; Start 06/27/17 at 08:00 Lisinopril (Prinivil) 10 mg DAILY16 PO ; Start 06/27/17 at 16:00; Status UNV Magnesium Oxide (Magnesium Oxide) 400 mg DAILY PO Last administered on 08:39; Start 06/27/17 at 09:00 Metoprolol Tartrate (Lopressor) 25 mg BID PO ; Start 06/27/17 at 09:00; Stop at 09:00; Status DC Sacubitril/ Valsartan (Entresto 49 Mg-51 Mg) 1 tab DAILY PO Last administered on 06/27/17 08:41; Start 06/27/17 at 09:00 Atorvastatin Calcium (Lipitor) 40 mg QHS PO Last administered on 06/26/17 21: 37; Start 06/26/17 at 22:00 Metoprolol Tartrate (Lopressor) 25 mg BID PO Last administered on 06/27/17 08: 39; Start 06/26/17 at 21:30 Nitroglycerin (Nitro-Bid Oint) 0.25 inch Q6HRS TP Last administered on 06:01; Start 06/27/17 at 01:30 Enoxaparin Sodium (Lovenox) 40 mg Q24H SQ Last administered on 06/27/17 08:41 ; Start 06/27/17 at 08:45 Active Scripts Active Magnesium Oxide 400 Mg Tablet 1 Tab PO DAILY Metoprolol Tartrate 25 Mg Tablet 1 Tab PO BID LAST DOSE GIVEN: DATE: TIME: NEXT DOSE DUE: DATE: RESTART TODAY TIME: EVENING Children's Aspirin (Aspirin) 81 Mg Tab.chew 81 Mg PO DAILYWBKFT Reported Percocet 10-325 Mg Tablet (Oxycodone Hcl/Acetaminophen) 1 Each Tablet 1 Each PO PRN BID PRN Lisinopril 10 Mg Tablet 1 Tab PO DAILY16 Entresto 49 mg-51 mg Tablet (Sacubitril/Valsartan) 1 Each Tablet 1 Each PO DAILY Atorvastatin Calcium 40 Mg Tablet 1 Tab PO QHS Allergies: Coded Allergies: No Known Drug Allergies (Unverified , 12/04/15) Review of System as per HPI or negative HEENT: No: Oral lesions Genitourinary: No: Incontinence General: Alert, Oriented X3, Cooperative, No acute distress HEENT: Atraumatic, EOMI, Mucous membr. moist/pink Lungs: Other (decreased mid to base bilaterally with occ exp wheeze. ) Heart: Regular rate, Normal S1, Normal S2, Other (no gallops, clicks or rubs) Abdomen: Normal bowel sounds, Soft, No tenderness Extremities: No cyanosis, Normal pulses Neuro: Normal speech, Strength at 5/5 X4 ext Psych/Mental Status: Mental status NL, Mood NL VITALS Vital Signs Date Time Temp Pulse Resp B/P (MAP) Pulse Ox O2 Delivery O2 Flow Rate FiO2 06/27/17 08:41 72 160/91 06/27/17 08:39 20 92 Room Air 06/27/17 06:11 97.4 Labs Laboratory Tests Test 06/26/17 17:50 06/27/17 00:40 06/27/17 06:25 White Blood Count 6.0 x10^3/uL (4.0-11.0) Red Blood Count 3.86 x10^6/uL (4.30-5.70) Hemoglobin 14.3 g/dL (13.0-17.5) Hematocrit 40.8 % (39.0-53.0) Mean Corpuscular Volume 106 fL (79-100) Mean Corpuscular Hemoglobin 37 pg (25-35) Mean Corpuscular Hemoglobin Concent 35 g/dL (31-37) Red Cell Distribution Width 12.8 % (11.5-14.5) Platelet Count 179 x10^3/uL (140-400) Neutrophils (%) (Auto) 66 % (31-73) Lymphocytes (%) (Auto) 24 % (24-48) Monocytes (%) (Auto) 7 % (0-9) Eosinophils (%) (Auto) 2 % (0-3) Basophils (%) (Auto) 1 % (0-3) Neutrophils # (Auto) 4.0 x10^3uL (1.8-7.7) Lymphocytes # (Auto) 1.5 x10^3/uL (1.0-4.8) Monocytes # (Auto) 0.4 x10^3/uL (0.0-1.1) Eosinophils # (Auto) 0.1 x10^3/uL (0.0-0.7) Basophils # (Auto) 0.1 x10^3/uL (0.0-0.2) Prothrombin Time 10.3 SEC (9.4-11.4) Prothromb Time International Ratio 1.0 (0.9-1.1) Activated Partial Thromboplast Time 27 SEC (23-33) Sodium Level 139 mmol/L (136-145) Potassium Level 4.2 mmol/L (3.5-5.1) Chloride Level 103 mmol/L (98-107) Carbon Dioxide Level 30 mmol/L (21-32) Anion Gap 6 (6-14) Blood Urea Nitrogen 12 mg/dL (8-26) Creatinine 1.2 mg/dL (0.7-1.3) Estimated GFR (Cockcroft-Gault) 77.2 BUN/Creatinine Ratio 10 (6-20) Glucose Level 95 mg/dL (70-99) Calcium Level 9.0 mg/dL (8.5-10.1) Magnesium Level 1.5 mg/dL (1.8-2.4) Total Bilirubin 0.8 mg/dL (0.2-1.0) Aspartate Amino Transf (AST/SGOT) 36 U/L (15-37) Alanine Aminotransferase (ALT/SGPT) 56 U/L (16-63) Alkaline Phosphatase 77 U/L (46-116) Creatine Kinase 142 U/L (39-308) Creatine Kinase MB (Mass) 0.6 ng/mL (0.0-3.6) Creatine Kinase MB Relative Index 0.4 % (0-4) Troponin I Quantitative 0.028 ng/mL (0-0.055) 0.037 ng/mL (0-0.055) 0.034 ng/mL (0-0.055) ZS-Onq-C-Type Natriuretic Peptide 417 pg/mL (0-124) Total Protein 7.2 g/dL (6.4-8.2) Albumin 3.8 g/dL (3.4-5.0) Albumin/Globulin Ratio 1.1 (1.0-1.7) Lipase 109 U/L (73-393) Images EKG sinus rhythm, AWMI age undetermined. CXR - no acute abn Assessment/Plan 1. chest pain, atypical - troponins are mildly elevated but remain in the indeterminate range. EKG is unchanged from prior and reveals no acute abnormalities. 2. ICM EF 35-40% - on appropriate medical therapy without overt heart failure at this time. NYHA functional class II. 3. Hypertension - uncontrolled. 4. hyperlipidemia - check lipids, continue statin 5. hypomagnesemia - replaced, recheck Will increase beta dharmesh for hypertension and anti anginal effect. Repeat magnesium and replace as needed. Suggest outpatient stress testing to eval known LAD and OM lesions. Will discuss with primary budget consultant. Problems: JAMIL MARES MD 06/27/17 1502: CONSULT Allergies: Coded Allergies: No Known Drug Allergies (Unverified , 12/04/15) Assessment/Plan Patient seen and examined The patient is feeling better this morning. Chest pain with a history of coronary artery disease. Pain resolving. No acute EKG changes. Troponin not significantly elevated. We'll continue medical treatment. Echocardiogram today. If no acute changes on echocardiogram and the patient is feeling well will consider discharge today and outpatient stress testing this week. If the patient's ejection fraction has deteriorated further or he has further pain with keeping inpatient and proceed with stress testing tomorrow. Chronic systolic heart failure. Ejection fraction of 35-40%. Reasonably compensated today. Continue medical treatment. Accelerated hypertension. Improved today. Continuing medical treatment. Hyperlipidemia. Continue statins. Hypomagnesemia. Replacing. Thank you for allowing us to participate in the care of your patient Problems: DAFNE HARRIS APRN Jun 27, 2017 09:00 JAMIL MARES MD Jun 27, 2017 15:02
[2017-06-27 09:46] LABS: CALCIUM 8.5 mg/dL (8.5-10.1); CREATININE 0.9 mg/dL (0.7-1.3); GFR 107.6; MAGNESIUM 1.8 mg/dL (1.8-2.4); POTASSIUM 3.9 mmol/L (3.5-5.1)
[2017-06-27 10:55] VITALS: BP 144/87
[2017-06-27 12:16] VITALS: BP 144/87
[2017-06-27] MEDS ORDERED: METO50TA2 PO (12:35)
[2017-06-27] MEDS ORDERED: MAGN400T3 PO (12:35)
--- NOTE | 2017-06-27 14:58 | HP ---
ADMIT DATE: 06/26/2017 REASON FOR ADMISSION: Chest pain. HISTORY OF PRESENT ILLNESS: This is a 52-year-old male with known coronary artery disease including 3 stents, who was home watching TV and he felt what he describes as "spikes in his chest." He stood up, he states briefly got blurred vision and could not see and decided to come to the hospital to be seen. He did have some Yi fries and drank some coffee on an empty stomach. PAST MEDICAL HISTORY: Significant for heart attack, 3 stents, CVA, colon cancer. PAST SURGICAL HISTORY: Colectomy for colon cancer and stent placement. MEDICATIONS: Reviewed and corrected and are available on the MAR. ALLERGIES: None. FAMILY HISTORY: Hypertension and diabetes. SOCIAL HISTORY: No tobacco, no drug problems. He is not currently working. REVIEW OF SYSTEMS: As per HPI, otherwise a little bit of GERD. OBJECTIVE: VITAL SIGNS: Blood pressure is 144/87, pulse 67, respirations 20, temperature 97.7, pulse ox 95% on room air. He also has some other elevated blood pressures arriving to the Emergency Room. HEENT: Hearing is normal. His eyes were clear. His nose was patent. Throat was clear. LUNGS: Clear to auscultation. CARDIOVASCULAR: Regular rhythm and rate. Short systolic murmur. ABDOMEN: Soft, some slight mid epigastric tenderness. Bowel sounds active. EXTREMITIES: Without edema. LABORATORY DATA: White blood cell count 6.0. MCV of 106, magnesium was 1.5. BNP 417 and troponins were equivocal, 0.028, 0.037, 0.034. EKG, there are no ST elevations or depression, sinus rhythm, questionable left atrial abnormality. ASSESSMENT: 1. Chest pain with equivocal troponins - Cardiology assisting, EKG unchanged. 2. Ischemic cardiomyopathy with ejection fraction of 35% to 40%. 3. Hypomagnesemia. 4. Hyperlipidemia. He is on a statin. 5. Macrocytosis, questionable etiology. We will check B12 and magnesium is being replaced. Metoprolol was changed and DVT prophylaxis. BOBBI HWANG DO DR: ROBERT/jourdan JOB#: [id number] / [id number]
[2017-06-27] MEDS ORDERED: LISINOPRIL 10 MG TABLET PO SCH (16:00)
[2017-06-27] MEDS ORDERED: METOPROLOL TART IMMED RELEASE 50 MG TABLET PO SCH (21:00)
--- NOTE | 2017-06-27 22:07 | DS ---
DATE OF DISCHARGE: 06/27/2017 Please note a full history and physical was just done. Please refer to that for further information. DISCHARGE DIAGNOSES: Chest pain, myocardial infarction ruled out; hypomagnesemia, hypertension. PLAN: See discharge instructions in the H and P. BOBBI HWANG DO DR: ROBERT/jourdan JOB#: [id number] / [id number]
== END 2017-06-27 14:00 | disposition home or self-care (01) ==
LOC: ER 17:40 → UNDOADMOB 17:54 → 1 SOUTH 17:54 → ER 20:30
PROVIDERS: ADMIT Internal Medicine; ATTEND Internal Medicine
DX: E83.42 Hypomagnesemia (principal); I11.0 Hypertensive heart disease with heart failure; Z82.49 Family history of ischemic heart disease and other diseases of the circulatory system; E78.5 Hyperlipidemia, unspecified; I25.2 Old myocardial infarction; D75.89 Other specified diseases of blood and blood-forming organs; E78.00 Pure hypercholesterolemia, unspecified; I25.10 Atherosclerotic heart disease of native coronary artery without angina pectoris; I25.5 Ischemic cardiomyopathy; I50.22 Chronic systolic (congestive) heart failure; Z83.3 Family history of diabetes mellitus; Z85.038 Personal history of other malignant neoplasm of large intestine; Z86.73 Personal history of transient ischemic attack (TIA), and cerebral infarction without residual deficits; Z87.891 Personal history of nicotine dependence
CPT/HCPCS: 36415; 71010; 80048; 80053; 82553; 82607; 83690; 83735; 83880; 84484; 85025; 85610; 85730; 93005; 96361; 96372; 96375; 96376; G0378; G0379; J1170; J1650; J2060; J2270; J3475; 96374; 99285-25; J7030

== ENCOUNTER → 2017-06-30 | Outpatient (CLI) | payer OTHER ==
[2017-06-27 12:16] VITALS: BP 144/87
[~2017-06-30] MED LIST changes: +METO50TA2 PO; +REGADENOSON 0.4 MG/5 ML DISP.SYRIN. IV ONE
--- NOTE | 2017-06-30 12:50 | RAD ---
APPROVED REPORT Test Type: Pharmacological Stress Nurse/Tech: CARI De La O Test Indications: Chest pain CAD Risk Factors Cardiac History: MD 2016 Medications: see EHR See EHR see EHR Medical History: SEE EHR Resting ECG: SR 1DEGREE AVB AWMI AGE UNDETERMINED NS ST/T CHANGES Resting Heart Rate: 80 bpm Resting Blood Pressure: 162/104mmHg Pretest Chest Pain: None Nurse/Tech Notes Consent: The procedure was explained to the patient in lay terms. Informed consent was witnessed. Heath eout was entered into [employer]. History and Stress Test performed by CARI De La O Pharm. Details Pharmacologic stress testing was performed using 0.4mg per 5ml of regadenoson given intravenously ove r 7-10 seconds. POST EXERCISE Max HR: 112 bpm Max Blood Pressure: 175/108mmHg Blood Pressure response to exercise: Normal blood pressure response during stress. Heart Rate response to exercise: NORMAL RESPONSE Chest Pain: No. INTERPRETATION Stress EKG Conclusion: Baseline EKG showed sinus rhythm with old anteroseptal infarct. No diagnostic changes of ischemia at peak stress. No arrhythmias. Imaging Protocol IMAGE PROTOCOL: Rest Tc-99m/stress Tc-99m 1 day Rest: Stress: Viability: Radiopharm.Tc99m [id number] Sestamibi Dose11.9mCi 33.2mCi Duration 17min. 12min. Img Date 06/30/2017 06/30/2017 Inj-Img [id number]. 60min. Rest Admin Site:IV - Left AntecubitalAdministrator: CARI De La O Stress Admin Site: IV - Left AntecubitalAdministrator: CARI De La O STRESS DATA End Diast. Vol.280.0mlAv. Heart Rate77.0bpm LVEDV index BSA5.0mlCardiac Output0.1L/min End Syst. Vol.205.0mlCO Index BSA5.8L/min LVESV index BSA3.0mlMyocardial Dyvn969.0g Eject. Hussepha81.0% Stress Rates Pk. Fill Rate1.66EDV/secLVtime Pk. Fill 77.90msec Pk. Empty Rate1.71ESV/secLVtime Pk. Eozdl556.52msec 1/3 Pk. Fill1.17EDV/sec Stress Scores Regional WT3.00Summed WT35.00 Regional WM2.00Summed WM49.00 LV Perfusion Scintigraphic images showed large predominantly fixed defect involving the anterior wall extending in to the apical wall consistent with previous myocardial infarction with small amount of reversibility consistent with kristine-infarct ischemia. Wall Motion Severe left ventricular systolic dysfunction and akinetic apical wall with ejection fraction calculat ed at 23%. LV Perf. Quant 17 Seg. SSS17.00 17 Seg. SRS16.00 17 Seg. SDS3.00 Stress Defect Extent (% LAD)64.40Rest Defect Extent (% LAD)66.90Rev. Defect Extent (% LAD)1.30 Stress Defect Extent (% LCX) 1.30Rest Defect Extent (% LCX)1.30Rev. Defect Extent (% LCX)0.00 Stress Defect Extent (% RCA)10.00Rest Defect Extent (% RCA)10.00Rev. Defect Extent (% RCA)1.10 Stress Defect Extent (% KACIE)33.70Rest Defect Extent (% KACIE)32.60Rev. Defect Extent (% KACIE)1.30 Conclusion 1. Regadenoson cardioisotope stress test showed large infarct involving the anterior wall extending i nto the apical wall with small amount of kristine-infarct ischemia. 2. Severe left ventricular systolic dysfunction and akinetic apical wall with ejection fraction calcu lated at 23%. 3. Intermediate risk for cardiac events.
== END | disposition home or self-care (01) ==
LOC: NM 06:59
PROVIDERS: ATTEND Internal Medicine Cardiovascular Disease
DX: I11.0 Hypertensive heart disease with heart failure (principal); I50.9 Heart failure, unspecified; I25.10 Atherosclerotic heart disease of native coronary artery without angina pectoris; I25.2 Old myocardial infarction; E83.42 Hypomagnesemia; R71.8 Other abnormality of red blood cells; F17.200 Nicotine dependence, unspecified, uncomplicated; Z95.5 Presence of coronary angioplasty implant and graft; Z79.01 Long term (current) use of anticoagulants
CPT/HCPCS: 78452; 93017; 96374; 96375; 96376; A9500; J2785

== ENCOUNTER 2017-12-28 00:44 | Emergency (ER) | payer OTHER ==
[~2017-12-28] VITALS: Ht 177.8 cm; Wt 97.2 kg
[~2017-12-28 00:44] MED LIST changes: -METO50TA2 PO; +METO50TA6 PO; -REGADENOSON 0.4 MG/5 ML DISP.SYRIN. IV ONE
[2017-12-28] MEDS ORDERED: NITROGLYCERIN OINT 1 GM PACKET. ONE (01:06)
[2017-12-28] MEDS ORDERED: ASPIRIN ENTERIC COATED 325 MG TABLET.DR. PO ONE ×2 (01:06→01:30)
[2017-12-28] MEDS ORDERED: MORPHINE SULFATE 4 MG/ML DISP.SYRIN. ONE (01:06)
[2017-12-28] MEDS: NITROGLYCERIN SUBLINGUAL 0.4 MG BOTTLE OF 25. SL PRN ×2 (01:09→01:33)
[2017-12-28] MEDS ORDERED: MORPHINE SULFATE 2 MG/ML DISP.SYRIN. IV PRN (01:15)
[2017-12-28 01:21] LABS: BASO # 0.1 x10^3/uL (0.0-0.2); BASO % 2 % (0-3); EOS # 0.2 x10^3/uL (0.0-0.7); EOS % 3 % (0-3); HEMATOCRIT 41.9 % (39.0-53.0); HEMOGLOBIN 14.7 g/dL (13.0-17.5); LYMPH # 2.1 x10^3/uL (1.0-4.8); LYMPH % 31 % (24-48); MEAN CORPUSCULAR HEMOGLOBIN 37 pg (25-35); MEAN CORPUSCULAR HGB CONC 35 g/dL (31-37); MEAN CORPUSCULAR VOLUME 106 fL (79-100); MONO # 0.4 x10^3/uL (0.0-1.1); MONO % 6 % (0-9); NEUT # 3.9 x10^3uL (1.8-7.7); NEUT % 58 % (31-73); PLATELET COUNT 179 x10^3/uL (140-400); RED BLOOD COUNT 3.94 x10^6/uL (4.30-5.70); RED CELL DISTRIBUTION WIDTH 12.7 % (11.5-14.5); WHITE BLOOD COUNT 6.7 x10^3/uL (4.0-11.0)
[2017-12-28] MEDS: MORPHINE SULFATE 4 MG/ML DISP.SYRIN. IV PRN ×2 (01:21→01:43)
[2017-12-28] MEDS ORDERED: NITROGLYCERIN OINT 1 GM PACKET. TP ONE (01:30)
[2017-12-28 01:33] VITALS: BP 179/115
[2017-12-28 01:36] LABS: ALBUMIN 3.6 g/dL (3.4-5.0); ALBUMIN/GLOBULIN RATIO 0.9 (1.0-1.7); CALCIUM 9.9 mg/dL (8.5-10.1); CREATININE 0.9 mg/dL (0.7-1.3); GFR 107.6; POTASSIUM 4.3 mmol/L (3.5-5.1); TOTAL BILIRUBIN 0.8 mg/dL (0.2-1.0)
[2017-12-28 01:38] LABS: TOTAL PROTEIN 7.6 g/dL (6.4-8.2)
--- NOTE | 2017-12-28 01:44 | PHYS DOC ---
Past History Past Medical History: Cancer, CVA, High Cholesterol, Hypertension, [place], Stroke Past Surgical History: Other Smoking: Cigarettes, Less than 1pk/day, Quit Less Than 1 Year Alcohol Use: None Drug Use: None Adult General Chief Complaint Chief Complaint: CHEST PAIN HPI HPI Patient is a 52-year-old gentleman who has a history significant for hypertension and coronary artery disease who has had 3 stents in the past presents to the ER today complaining of midsternal chest pressure with pressure to his left side of his chest and left arm and left neck that started earlier today while he was sitting watching TV. Patient reports had associated shortness of breath with it. Patient has a nausea vomiting diaphoresis. Patient has any pain radiating to his back. Patient reports pain he is experiencing today is similar to the pain that he's had with his prior coronary artery disease episodes. Patient has any recent fevers shakes chills cough cold rhinorrhea dysuria frequency urgency abdominal pain. Patient reports at home he took one sublingual nitroglycerin without any significant relief of the discomfort. Patient reports that his special education tutor is Dr. Purvis. Review of systems: Constitutional: Denies fever or chills Eyes: Denies change in visual acuity, redness, or eye pain HENT: Denies nasal congestion or sore throat Respiratory: Denies cough or shortness of breath All other systems were reviewed and found to be within normal limits, except as documented in this note. Physical exam: Constitutional: Well developed, well nourished, no acute distress, non-toxic appearance. HENT: Normocephalic, atraumatic, bilateral external ears normal, nose normal. Eyes: PERRLA, EOMI, conjunctiva normal, no discharge. Neck: Normal range of motion, no tenderness, supple, no stridor. Cardiovascular: Heart rate regular rhythm, Lungs & Thorax: Bilateral breath sounds clear to auscultation Abdomen: No abdominal distention. Skin: Warm, dry, no erythema, no rash. Back: Normal spinal curvature Extremities: No tenderness, no cyanosis, no clubbing, ROM intact, no edema. Neurologic: Alert and oriented X 3, normal motor function, normal sensory function, no focal deficits noted. Psychologic: Affect normal, judgement normal, mood normal. Patient's ER physical exam was most remarkable: EKG as interpreted by ER physician reveals: Normal sinus rhythm with nonspecific ST-T wave abnormalities. No ST elevation [place]. Chest x-ray as interpreted by ER physician reveals: Normal heart no infiltrates or effusions. Labs reviewed: CBC, CMP within normal limits. Patient has an elevated BNP. Troponin normal. Assessment and plan: 1. 52-year-old gentleman who presents here today secondary to chest pain. Patient has a history significant for coronary artery disease reports pain and he is expressing today similar to the pain he is had with his prior heart disease episodes. Patient was given aspirin, nitro paste, sublingual and intravenously, morphine. Patient presents to the hospital for further cardiac evaluation. Patient's ER workup is been unremarkable. Patient's labs a been within normal limits. The patient has had persistent pain throughout his ED evaluation despite DOSES of fentanyl, morphine, nitroglycerin, Nitropaste and aspirin. I discussed the case with Dr. Hendrix her to is requesting that we consult the patient's special education tutor, Dr. Yanes. I discussed the case with Dr. Zee who is recommended transfer to [facility] today C for further monitoring given the persistent pain. Patient had a CTA scan done secondary to his persistent pain and there is no evidence of dissection or PE. Current Medications Current Medications Current Medications Medications (Trade) Dose Ordered Sig/[place] Start Time Stop Time Status Last Admin Dose Admin Aspirin (Aspirin Enteric Coated) 325 mg STK-MED ONCE 12/28/17 01:06 12/28/17 01:07 DC Morphine Sulfate (Morphine 2mg Syringe) 2 mg PRN Q10MIN PRN 12/28/17 01:15 12/28/17 01:17 DC Morphine Sulfate (Morphine 4mg Syringe) 2 mg PRN Q10MIN PRN 12/28/17 01:17 12/28/17 01:21 2 MG Nitroglycerin (Nitro-Bid Oint) 1 inch STK-MED ONCE 12/28/17 01:06 12/28/17 01:07 DC Nitroglycerin (Nitrostat) 0.4 mg PRN Q5MIN PRN 12/28/17 01:15 12/28/17 01:33 0.4 MG Allergies Allergies Allergies Coded Allergies Type Severity Reaction Last Updated Verified No Known Drug Allergies 12/04/15 No Current Patient Data Vital Signs Vital Signs Date Time Temp Pulse Resp B/P (MAP) Pulse Ox O2 Delivery O2 Flow Rate FiO2 12/28/17 01:33 77 179/115 12/28/17 00:44 97.9 20 97 Room Air Lab Results Laboratory Tests Test 12/28/17 01:01 White Blood Count 6.7 x10^3/uL (4.0-11.0) Red Blood Count 3.94 x10^6/uL (4.30-5.70) L Hemoglobin 14.7 g/dL (13.0-17.5) Hematocrit 41.9 % (39.0-53.0) Mean Corpuscular Volume 106 fL (79-100) H Mean Corpuscular Hemoglobin 37 pg (25-35) H Mean Corpuscular Hemoglobin Concent 35 g/dL (31-37) Red Cell Distribution Width 12.7 % (11.5-14.5) Platelet Count 179 x10^3/uL (140-400) Neutrophils (%) (Auto) 58 % (31-73) Lymphocytes (%) (Auto) 31 % (24-48) Monocytes (%) (Auto) 6 % (0-9) Eosinophils (%) (Auto) 3 % (0-3) Basophils (%) (Auto) 2 % (0-3) Neutrophils # (Auto) 3.9 x10^3uL (1.8-7.7) Lymphocytes # (Auto) 2.1 x10^3/uL (1.0-4.8) Monocytes # (Auto) 0.4 x10^3/uL (0.0-1.1) Eosinophils # (Auto) 0.2 x10^3/uL (0.0-0.7) Basophils # (Auto) 0.1 x10^3/uL (0.0-0.2) Sodium Level 140 mmol/L (136-145) Potassium Level 4.3 mmol/L (3.5-5.1) Chloride Level 100 mmol/L (98-107) Carbon Dioxide Level 28 mmol/L (21-32) Anion Gap 12 (6-14) Blood Urea Nitrogen 12 mg/dL (8-26) Creatinine 0.9 mg/dL (0.7-1.3) Estimated GFR (Cockcroft-Gault) 107.6 BUN/Creatinine Ratio 13 (6-20) Glucose Level 93 mg/dL (70-99) Calcium Level 9.9 mg/dL (8.5-10.1) Total Bilirubin 0.8 mg/dL (0.2-1.0) Aspartate Amino Transferase (AST) 97 U/L (15-37) H Alanine Aminotransferase (ALT) 79 U/L (16-63) H Alkaline Phosphatase 105 U/L (46-116) Troponin I Quantitative < 0.017 ng/mL (0-0.055) NR-Bla-C-Type Natriuretic Peptide 1288 pg/mL (0-124) H Total Protein 7.6 g/dL (6.4-8.2) Albumin 3.6 g/dL (3.4-5.0) Albumin/Globulin Ratio 0.9 (1.0-1.7) L EKG EKG [] Radiology/Procedures Radiology/Procedures [] Course & Med Decision Making Course & Med Decision Making Pertinent Labs and Imaging studies reviewed. (See chart for details) [] Dragon Disclaimer Dragon Disclaimer This electronic medical record was generated, in whole or in part, using a voice recognition dictation system. Departure Departure: Impression: Primary Impression: Chest pain Disposition: XFER OTHER [facility] Condition: IMPROVED Referrals: ANN PÉREZ MD (PCP) SMITH NOLAND MD Dec 28, 2017 01:44
[2017-12-28] MEDS ORDERED: ONDANSETRON PF 4 MG/2 ML VIAL. IV ONE (02:15)
[2017-12-28] MEDS ORDERED: CONTRAST GIVEN MC PRN (02:30)
[2017-12-28] MEDS ORDERED: IOHEXOL 300 MG/ML 75 ML VIAL. IV ONE (03:00)
--- NOTE | 2017-12-28 03:06 | RAD ---
CTA Chest with contrast: Clinical History: [id number] Omni 300 75cc: PE protocol: Chest pain, short of air. Hx: CAD, HTN. Old images sent from 06/22/16 for comparison. Shortness of breath. Axial helical images of the chest were obtained after the administration of 75 cc of IV Omni 300 and timed appropriately for a pulmonary arterial study. Conventional axial reconstruction was performed in addition to coronal, sagittal and bilateral oblique MIP (maximum intensity projection). This study was ordered to detect possible pulmonary embolism. There are no filling defects to suggest pulmonary embolism. The lungs and pleural margins are clear. There is no mediastinal or hilar lymphadenopathy. The ascending thoracic aorta measures 4.0 cm in diameter. There is no dissection thrombus or stenosis. There is coronary artery calcifications. There is a simple cyst in the right kidney. Impression: 1. No evidence of pulmonary embolism. 2. Mildly dilated ascending thoracic aorta. 3. Coronary artery calcifications 4. No acute findings.. PQRS Compliance Statement: One or more of the following individualized dose reduction techniques were utilized for this examination: 1. Automated exposure control 2. Adjustment of the mA and/or kV according to patient size 3. Use of iterative reconstruction technique Electronically signed by: Kenyon Ross III, MD (12/28/2017 3:03 AM) [facility]
[2017-12-28 03:15] LABS: BILIRUBIN,URINE NEG (NEG); CLARITY,URINE CLEAR; COLOR,URINE STRAW; GLUCOSE,URINE NEG (NEG)
[2017-12-28 03:16] LABS: BACTERIA,URINE 0 /HPF (0-FEW); NITRITE,URINE NEG (NEG); RBC,URINE 0 /HPF (0-2); UROBILINOGEN,URINE 0.2 mg/dL (0.2 mg/dL); WBC,URINE RARE /HPF (0-4)
[2017-12-28] MEDS ORDERED: fentaNYL PF 250 MCG/5 ML VIAL IV ONE (03:45)
[2017-12-28] MEDS ORDERED: AMLO10TA2 PO (03:57)
--- NOTE | 2017-12-28 04:14 | EKG ---
[address] [address] Test Date: 2017-12-28 Test Time: 00:50:15 Pat Name: GODFREY FULLER Department: Room: Gender: M [employer]: : 1965 Requested By: SMITH NOLAND Order Number: [id number] Reading MD: Measurements Intervals [place] Rate: 77 P: 36 IN: 196 QRS: 19 QRSD: 96 T: 90 QT: 380 QTc: 432 Interpretive Statements SINUS RHYTHM S1,S2,S3 PATTERN QRS(T) CONTOUR ABNORMALITY CONSISTENT WITH ANTERIOR INFARCT AGE UNDETERMINED T ABNORMALITY IN HIGH LATERAL LEADS ABNORMAL ECG RI6.01 No previous ECG available for comparison
--- NOTE | 2017-12-28 07:14 | RAD ---
Portable chest, 12/28/2017: History: Chest pain Comparison is made to a study from 06/26/2017. The heart size and pulmonary vascularity are normal. There is mild ectasia of the thoracic aorta. No pulmonary infiltrate is seen. There is no evidence of pleural fluid. IMPRESSION: No acute cardiopulmonary abnormality is detected with no significant change since 06/26/2017.
== END 2017-12-28 04:46 | disposition short-term general hospital (02) ==
LOC: ER 00:44
DX: R07.89 Other chest pain (principal); M79.602 Pain in left arm; M54.2 Cervicalgia; E78.00 Pure hypercholesterolemia, unspecified; I10 Essential (primary) hypertension; Z86.73 Personal history of transient ischemic attack (TIA), and cerebral infarction without residual deficits; I25.2 Old myocardial infarction; Z87.891 Personal history of nicotine dependence
CPT/HCPCS: 36415; 71045; 71275; 80053; 81001; 82947; 83880; 84484; 85025; 93005; 96374; 96375; 96376; 99285; J2270; J2405; J3010; Q9967

== ENCOUNTER → 2018-01-31 | Outpatient (CLI) | payer OTHER ==
[~2018-01-31] MED LIST changes: +AMLO10TA2 PO
--- NOTE | 2018-01-31 14:20 | RAD ---
Lumbar spine, 3 views, 01/31/2018: History: Low back pain, no known injury The lumbar vertebral heights are well-maintained. There is minimal disc space narrowing at L4-5 and L5-S1. There are moderate scattered marginal spurs in the mid and lower lumbar spine. There are mild degenerative changes involving the facet joints bilaterally in the lower lumbar region. No fracture or dislocation is identified. Mild aortoiliac calcific plaquing is present. IMPRESSION: 1. Mild to moderate scattered degenerative changes. 2. No acute bony abnormality is detected.
== END | disposition home or self-care (01) ==
LOC: PMG 12:31
PROVIDERS: ATTEND Family Medicine
DX: M48.07 Spinal stenosis, lumbosacral region (principal); I11.0 Hypertensive heart disease with heart failure; I50.9 Heart failure, unspecified; E78.00 Pure hypercholesterolemia, unspecified
CPT/HCPCS: 72100

== ENCOUNTER 2019-07-11 10:10 | Emergency (ER) | payer OTHER ==
[~2019-07-11] VITALS: Ht 177.8 cm; Wt 100.9 kg
[~2019-07-11 10:10] MED LIST changes: -AMLO10TA2 PO; +AMLO10TA8 PO; -ASPI81TA44 PO; +ASPI81TA59 PO; -OXYC-328 PO; +OXYC1TAB22 PO
--- NOTE | 2019-07-11 10:47 | PHYS DOC ---
Past History Past Medical History: Cancer, CVA, High Cholesterol, Hypertension, [place], Stroke Past Surgical History: Other Smoking: Cigarettes, Less than 1pk/day, Quit Less Than 1 Year Alcohol Use: None Drug Use: None Adult General Chief Complaint Chief Complaint: COUGH HPI HPI Patient is a 54-year-old male presents complaining of a cough that began yesterday. His chest hurts with the cough. There is no exertional chest discomfort. No fever. No trauma. Some nasal congestion is present. He felt like he was getting a cold yesterday according to the patient and his partner. No fever at home. No relief with home treatment. No swelling in legs or feet. Unable to cough up any sputum. Pain is sharp. No radiation.[] Review of Systems Review of Systems Constitutional: Denies fever or chills [] Eyes: Denies change in visual acuity, redness, or eye pain [] HENT: See history of present illness[] Respiratory: See history of present illness[] Cardiovascular: No additional information not addressed in HPI [] GI: Denies abdominal pain, nausea, vomiting, bloody stools or diarrhea [] : Denies dysuria or hematuria [] Musculoskeletal: Denies back pain or joint pain [] Integument: Denies rash or skin lesions [] Neurologic: Denies headache, focal weakness or sensory changes [] Endocrine: Denies polyuria or polydipsia [] All other systems were reviewed and found to be within normal limits, except as documented in this note. Allergies Allergies Allergies Coded Allergies Type Severity Reaction Last Updated Verified No Known Drug Allergies 12/04/15 No Physical Exam Physical Exam Constitutional: Well developed, well nourished, mild discomfort, coughing, non- toxic appearance. [] HENT: Normocephalic, atraumatic, bilateral external ears normal, oropharynx moist, no oral exudates, nose normal. [] Eyes: PERRLA, EOMI, conjunctiva normal, no discharge. [] Neck: Normal range of motion, no tenderness, supple, no stridor. No JVD is present [] Cardiovascular:Heart rate regular rhythm, no murmur [] Lungs & Thorax: Bilateral breath sounds clear to auscultation [] Abdomen: Bowel sounds normal, soft, no tenderness, no masses, no pulsatile masses. [] Skin: Warm, dry, no erythema, no rash. [] Back: No tenderness, no CVA tenderness. [] Extremities: No tenderness, no cyanosis, no clubbing, ROM intact, no edema. [] Neurologic: Alert and oriented X 3, normal motor function, normal sensory function, no focal deficits noted. [] Psychologic: Affect normal, judgement normal, mood normal. [] EKG EKG EKG shows a sinus rhythm at 92 bpm, right axis at 138, QTC of 433 ms, no ST elevation. Interpreted by me at 1040.[] Radiology/Procedures Radiology/Procedures PROCEDURE: CHEST PA & LATERAL CHEST PA LATERAL History: Chest pain. Cough. Comparison: None. Findings: No consolidation or pleural effusion. Normal heart size. Impression: 1. No acute cardiopulmonary process.[] Course & Med Decision Making Course & Med Decision Making Pertinent Labs and Imaging studies reviewed. (See chart for details) ED course: Patient arrived, was placed in bed, and tolerated exam well. He was transported to and from radiology with thank him patient's. He received breathing treatment as well as cough medicine which significant only improved his cough and his discomfort. After the return of lab and imaging findings, these were discussed with the patient who voiced understanding. All questions were answered. He was discharged in improved condition. Medical decision making: There is no evidence of this being an acute coronary syndrome, pneumonia, pneumothorax, nor CHF. His BNP is noted to be elevated but it is decreased from his previous BNP from approximately a year and a half ago. Believe this to be postnasal drainage triggering the cough reflex. No evidence of hypoxia.[] Dragon Disclaimer Dragon Disclaimer This electronic medical record was generated, in whole or in part, using a voice recognition dictation system. Departure Departure: Impression: Primary Impression: Cough Disposition: HOME, SELF-CARE Condition: IMPROVED Referrals: ANN PÉREZ MD (PCP) Follow-up in 2 days Patient Instructions: Cough, Adult Additional Instructions: Drink plenty of fluids. Follow-up with your doctor in 2 days. Take the medication as prescribed. Return to the ER if worsening difficulty breathing, increasing pain, or any other concerns. Scripts D-Methorphan Hb/Prometh Hcl (PROMETHAZINE-DM SYRUP) 118 Ml Syrup 5 ML PO PRN Q4HRS for CONGESTION, #120 ML Prov: JAMEEL DOUGHERTY DO 07/11/19 Albuterol Sulfate (VENTOLIN HFA INHALER) 18 Gm Hfa.aer.ad 2 PUFF IH PRN Q4HRS PRN for FOR ASTHMA, #1 INHALER 0 Refills Prov: JAMEEL DOUGHERTY DO 07/11/19 JAMEEL DOUGHERTY DO Jul 11, 2019 10:47
[2019-07-11] MEDS ORDERED: PROMETH/CODEINE 6.25/10MG 5 ML SYRUP. PO ONE (11:00)
[2019-07-11] MEDS ORDERED: IPRATRPIUM/ALBUTEROL 0.5/2.5MG 3 ML NEBU. NEB ONE (11:00)
[2019-07-11 11:03] LABS: BASO # 0.1 x10^3/uL (0.0-0.2); BASO % 1 % (0-3); EOS # 0.3 x10^3/uL (0.0-0.7); EOS % 4 % (0-3); HEMATOCRIT 40.7 % (39.0-53.0); HEMOGLOBIN 14.1 g/dL (13.0-17.5); LYMPH # 1.4 x10^3/uL (1.0-4.8); LYMPH % 18 % (24-48); MEAN CORPUSCULAR HEMOGLOBIN 39 pg (25-35); MEAN CORPUSCULAR HGB CONC 35 g/dL (31-37); MEAN CORPUSCULAR VOLUME 112 fL (79-100); MONO # 0.5 x10^3/uL (0.0-1.1); MONO % 7 % (0-9); NEUT # 5.4 x10^3uL (1.8-7.7); NEUT % 70 % (31-73); PLATELET COUNT 213 x10^3/uL (140-400); RED BLOOD COUNT 3.64 x10^6/uL (4.30-5.70); RED CELL DISTRIBUTION WIDTH 13.2 % (11.5-14.5); WHITE BLOOD COUNT 7.7 x10^3/uL (4.0-11.0)
[2019-07-11 11:25] LABS: ALBUMIN 3.5 g/dL (3.4-5.0); ALBUMIN/GLOBULIN RATIO 0.9 (1.0-1.7); CALCIUM 9.6 mg/dL (8.5-10.1); CREATININE 1.3 mg/dL (0.7-1.3); GFR 69.9; POTASSIUM 3.7 mmol/L (3.5-5.1); TOTAL BILIRUBIN 0.9 mg/dL (0.2-1.0); TOTAL PROTEIN 7.6 g/dL (6.4-8.2)
[2019-07-11 11:44] VITALS: BP 128/88
--- NOTE | 2019-07-11 11:52 | RAD ---
CHEST PA LATERAL History: Chest pain. Cough. Comparison: None. Findings: No consolidation or pleural effusion. Normal heart size. Impression: 1. No acute cardiopulmonary process. Electronically signed by: Arik Petty DO (07/11/2019 11:49 AM) [id number]
[2019-07-11] MEDS ORDERED: PROM118S9 PO (12:02)
[2019-07-11] MEDS ORDERED: ALBU2.5V8 IH (12:02)
[2019-07-11 12:04] LABS: ANISOCYTOSIS PRESENT; PLT ESTIMATE ADEQUATE (ADEQUATE); POLYCHROMASIA PRESENT
[2019-07-11 12:05] LABS: STOMATOCYTES FEW
--- NOTE | 2019-07-11 13:46 | EKG ---
[address] [address] Test Date: 2019-07-11 Test Time: 10:32:00 Pat Name: GODFREY FULLER Department: Room: Gender: M Delivery Specialist: : 1965 Requested By: JAMEEL DOUGHERTY Order Number: [id number] Reading MD: Measurements Intervals [place] Rate: 92 P: 126 [place]: 202 QRS: 149 QRSD: 90 T: 97 QT: 348 QTc: 435 Interpretive Statements SINUS RHYTHM ABNORMAL RIGHT AXIS DEVIATION LOW LIMB LEAD VOLTAGE QRS(T) CONTOUR ABNORMALITY CONSISTENT WITH ANTERIOR INFARCT AGE UNDETERMINED CONSISTENT WITH HIGH LATERAL INFARCT AGE UNDETERMINED ABNORMAL ECG RI6.01 No previous ECG available for comparison
== END 2019-07-11 12:08 | disposition home or self-care (01) ==
LOC: ER 10:10
DX: R05 Cough (principal); R09.81 Nasal congestion; E78.00 Pure hypercholesterolemia, unspecified; I10 Essential (primary) hypertension; I25.2 Old myocardial infarction; F17.210 Nicotine dependence, cigarettes, uncomplicated; Z86.73 Personal history of transient ischemic attack (TIA), and cerebral infarction without residual deficits
CPT/HCPCS: 36415; 71046; 80053; 83880; 84484; 85025; 93005; 94640; 99285; J7620